=== PATIENT | female | born 1990 | race Caucasian/White ===

== ENCOUNTER 2021-08-30 11:59 | Emergency (ER) | payer OTHER ==
[~2021-08-30] VITALS: Ht 154.9 cm; Wt 45.5 kg
[2021-08-30 12:41] VITALS: BP 137/77
[2021-08-30] MEDS ORDERED: normal saline 1000ML IV soln IVB ONE (14:15)
[2021-08-30] MEDS ORDERED: ipratropium/albuterol 3ml nebule NEB ONE (14:15)
== END 2021-08-30 16:08 | disposition home or self-care (01) ==
LOC: ER 12:00
DX: J45.909 Unspecified asthma, uncomplicated (principal); Z20.822 Contact with and (suspected) exposure to COVID-19
CPT/HCPCS: 87635; 93005; 94640; 99284; C9803; J7030; 94760